=== PATIENT | male | born 1990 | race Two or more races ===

== ENCOUNTER 2019-04-14 10:00 | Emergency (ER) | payer MEDICAID ==
[~2019-04-14] VITALS: Ht 175.3 cm; Wt 94.0 kg
[~2019-04-14 10:00] MED LIST: HYDR1TAB PO; IBUP-1573 PO
[2019-04-14 10:08] VITALS: BP 134/74
== END 2019-04-14 10:29 | disposition home or self-care (01) ==
LOC: ER 10:00
DX: B34.9 Viral infection, unspecified (principal); R05 Cough; R50.9 Fever, unspecified; M79.18 Myalgia, other site; Z79.899 Other long term (current) drug therapy
CPT/HCPCS: 99281